=== PATIENT | female | born 1970 | race Caucasian/White ===

== ENCOUNTER → 2022-06-02 | Outpatient (CLI) | payer BC ==
--- NOTE | 2022-06-02 19:25 | Diagnostic Imaging Report ---
Indication: Routine screening. No prior mammograms are available for comparison. This is a baseline study. 2-D and 3-D bilateral screening mammography was performed with CAD. Both breasts are heterogeneously dense, limiting the sensitivity of mammography. No mass or malignant-appearing microcalcifications are seen. Axillae are unremarkable. IMPRESSION: BI-RADS Category 1 No mammographic features suspicious for malignancy are identified. ACR BI-RADS Category 1: Negative. Result letter will be mailed to the patient. Note: At least 10% of breast cancer is not imaged by mammography. Dictated by: Dictated on workstation # [id number]
== END ==
LOC: RAD 15:30
PROVIDERS: ATTEND Family Medicine
DX: Z12.31 Encounter for screening mammogram for malignant neoplasm of breast (principal); Z00.01 Encounter for general adult medical examination with abnormal findings
CPT/HCPCS: 77063; 77067

== ENCOUNTER 2022-06-18 06:35 | Outpatient (CLI) | payer BC ==
[~2022-06-18] VITALS: Ht 165.1 cm; Wt 86.6 kg
[2022-06-18] MEDS ORDERED: MULT-141 PO (14:10)
== END 2022-06-18 14:13 | disposition home or self-care (01) ==
LOC: PREOP 06:35
PROVIDERS: ATTEND Surgery
DX: Z01.818 Encounter for other preprocedural examination (principal)

== ENCOUNTER 2022-06-30 07:01 | Day surgery (SDC) | payer BC ==
[~2022-06-30] VITALS: Ht 165.1 cm; Wt 86.6 kg
[~2022-06-30 07:01] MED LIST: MULT-141 PO
[2022-06-30] MEDS ORDERED: LACTATED RINGERS 1,000 ML IV STA (07:06)
[2022-06-30] MEDS ORDERED: ceFAZolin INJECTION 1,000 MG in NS (IVPB) 50 ML IV ONE (07:15)
[2022-06-30] MEDS ORDERED: HURRICAINE EXT TUBE (BENZOCAINE) XX PRN (07:15)
[2022-06-30] MEDS ORDERED: MIDAZOLAM 2 MG/2 ML (VERSED) VIAL ONE (07:20)
[2022-06-30] MEDS ORDERED: PROPOFOL INJECTION 50 ML IV ONE ×2 (07:20→07:56)
[2022-06-30 07:27] VITALS: BP 145/98
--- NOTE | 2022-06-30 07:34 | Progress Note-Pre Operative ---
Pre-Operative Progress Note Date H&P Reviewed: Jun 30, 2022 Time H&P Reviewed: 07:34 History & Physical: H&P Reviewed, Patient Examed, No changes noted Pre-Operative Diagnosis: gerd, screening colonoscopy MAYA RIBEIRO DO Jun 30, 2022 07:34
[2022-06-30 08:10] VITALS: BP 99/66
[2022-06-30] MEDS ORDERED: PANT40TA2 PO (08:10)
--- NOTE | 2022-06-30 08:11 | Discharge Inst-Simple/Standard ---
Discharge Inst-Standard Reconcile Patient Problems Problems Reviewed?: Yes Discharge Medications New, Converted or Re-Newed RX: Transmitted to Pharmacy Patient Instructions/Follow Up Plan of Care/Instructions/FU: F/u with Dr. Dow in 2 weeks Activity as Tolerated: Yes Discharge Diet: No Restrictions, Regular Diet MAYA DOW DO Jun 30, 2022 08:11
--- NOTE | 2022-06-30 08:13 | Progress Note-Post Operative ---
Post-Operative Progess Note Surgeon (s)/Resawyer (s) Surgeon MAYA RIBEIRO DO Resawyer: n/a Pre-Operative Diagnosis gerd, screening colonoscopy Post-Operative Diagnosis Gastritis, linear ulceration of esophagus, hiatal hernia, normal colon Procedure & Operative Findings Date of Procedure 06/30/22 Procedure Performed/Findings EGD with biopsies, colonoscopy Anesthesia Type per registrar nurses' registry Estimated Blood Loss Estimated blood loss (mL): none Specimens/Packing Specimens Removed antral biopsy, linear ulceration of distal esophagus biopsy MAYA RIBEIRO DO Jun 30, 2022 08:13
[2022-06-30 08:15] VITALS: BP 100/65
[2022-06-30 08:35] VITALS: BP 100/65
[2022-06-30 08:43] VITALS: BP 100/65
--- NOTE | 2022-06-30 11:36 | Anesthesia-General Post-Op ---
MAC Patient Condition Mental Status/LOC: Same as Preop Cardiovascular: Satisfactory Nausea/Vomiting: Absent Respiratory: Satisfactory Pain: Controlled Complications: Absent Post Op Complications Complications None Follow Up Care/Instructions Patient Instructions None needed. Anesthesiology Discharge Order Discharge Order Patient is doing well, no complaints, stable vital signs, no apparent adverse anesthesia problems. No complications reported per nursing. FADUMO CASE CRNA Jun 30, 2022 11:36
--- NOTE | 2022-06-30 14:40 | OPERATIVE REPORT ---
DATE OF SERVICE: 06/30/2022 PREOPERATIVE DIAGNOSES: Gastroesophageal reflux disease, screening colonoscopy. POSTOPERATIVE DIAGNOSES: Gastritis, linear ulcerations in the distal esophagus, hiatal hernia, normal colon. PROCEDURES: EGD with biopsies, colonoscopy. SURGEON: Maya Dow DO ANESTHESIA: Per PROCEDURES ANALYST. ESTIMATED BLOOD LOSS: None. COMPLICATIONS: None. INDICATIONS: The patient is a 51-year-old female, needing EGD and colonoscopy. She understands risks and benefits of procedure and wished to proceed. Consent was signed in chart. DESCRIPTION OF PROCEDURE: The patient was taken to endoscopy suite, placed in left lateral recumbent position. Timeout was performed. Scope was inserted in the mouth, down the esophagus, stomach, into the duodenum without difficulty. There were no polyps, masses or ulcerations within the duodenum. Scope was slowly retracted back into stomach where it was further insufflated. Changes of gastritis present. Biopsy of the antrum was obtained. Scope was retroflexed noting moderate size hiatal hernia, no other pathology. Scope was returned to its normal position, slowly withdrawn until distal esophagus linear ulceration. Biopsy of GE junction was obtained. Scope was slowly retracted back until completely removed, noting no other pathology. Digital rectal exam was performed. No palpable polyps, masses or ulcerations. Scope was inserted in the rectum and advanced all the way to the cecum with minimal difficulty. Prep was adequate. Scope was slowly retracted back. No polyps, masses or ulcerations in the cecum, ascending, transverse, descending and sigmoid colon. Once in the rectum, scope was retroflexed noting no other pathology. Scope was returned to its normal position, slowly withdrawn until completely removed. The patient tolerated procedure well without complications, taken to recovery room in stable condition. RECOMMENDATIONS: The patient will need repeat colonoscopy in 10 years unless family history of colon cancer, which will be 5 years. Any issues before that, be seen at that time. We will start her on Protonix 40 mg daily. We will see how this helps with her symptoms. She will follow up in 2 weeks. Job ID: [id number] DocumentID: [id number] Dictated Date: 06/30/2022 08:44:53 Materials Scientist Date: 06/30/2022 14:39:00 Dictated By: MAYA DOW DO
== END 2022-06-30 08:43 | disposition home or self-care (01) ==
LOC: ENDO 07:01
PROVIDERS: ATTEND Surgery
DX: Z12.11 Encounter for screening for malignant neoplasm of colon (principal); K29.70 Gastritis, unspecified, without bleeding; K22.10 Ulcer of esophagus without bleeding; K44.9 Diaphragmatic hernia without obstruction or gangrene; K31.89 Other diseases of stomach and duodenum; Z80.0 Family history of malignant neoplasm of digestive organs; Z83.71 Family history of colonic polyps